=== PATIENT | female | born 1975 | race Asian ===

== ENCOUNTER → 2016-09-09 | Day surgery (SDC) | payer OTHER ==
[~2016-09-09] VITALS: Ht 152.4 cm; Wt 110.2 kg
[~2016-09-09] MED LIST: CLARINEX5 M1 PO; CLARITIN10 M3 PO; HYDROCHLOROTHIA25 M1 PO; LANTUS SOL100 UNIT/1; LOSARTAN POTAS100 M1 PO; METFORMIN HCL1000 M1 PO; NAPHCON A 0.02515 ML OTIC; NASONEX17 GM NAS; OPTIVAR OPH; PLAQUENIL200 M1 PO; RAYOS5 MG PO; SIMPONI; TESSALON PERLE100 M1 PO; TOBRAMYCIN AND10 ML OD; VENTOLIN HFA18 GM INH; VITAMIN D250000 UNIT PO
--- NOTE | 2016-09-09 10:22 | ULTRASOUND CBW REPORT ---
EXAMINATION: ULTRASOUND GUIDED NEEDLE LOCALIZATION BREAST, LEFT BREAST CLINICAL INFORMATION: Enlarging solid mass in the left breast 12:00. Localization for excision. COMPARISON: Several prior breast ultrasounds, most recent of which is dated 12/18/2015. TECHNIQUE NEEDLE LOC: Proper informed consent is obtained from the patient after discussion of the procedure, potential risks and complications, and alternatives including declining the procedure today. Patient was given an opportunity for questions. The patient appeared to understand. The patient consented to the procedure and signed the consent form. GUIDANCE: Ultrasound. APPROACH: Lateral. TARGET: 0.7 x 1.1 x 2.2 cm solid hypoechoic mass with mild internal vascular flow in the 12:00 position, 2 cm from the nipple ANESTHESIA: 10 mL Xylocaine 2%. LOCALIZATION MARKER: Maskless Lithography 5 cm needle localization system. The skin was prepped and local anesthesia administered. The needle was positioned and position assessed under continuous ultrasound guidance. The wire was hooked into position. The patient tolerated the procedure well and had no immediate complication. Diagram was marked for the surgeon. The target is a solid mass in the 12:00 position, located at the hook of the wire, 5.0 cm deep to the skin with 6.0 cm of the wire remaining external to the skin. IMPRESSION: Status post left breast needle localization with wire hooked into position. The target is a solid mass in the 12:00 position, located at the hook of the wire, 5.0 cm deep to the skin with 6.0 cm of the wire remaining external to the skin.
--- NOTE | 2016-09-09 18:44 | MAMMOGRAPHY REPORT ---
EXAMINATION: MM NEEDLE LOCALIZATION SPECIMEN FROM THE BREAST, LEFT CLINICAL INDICATION: Excision of solid left breast mass. COMPARISON: Preoperative needle localization films from 09/09/2016. TECHNIQUE: Single specimen radiograph was obtained. FINDINGS: The radiograph of the excised surgical specimen shows that the hookwire is delivered intact with the hook within the localized solid mass. On single projection, the mass measures approximately 1.7 x 1.9 cm. No orthogonal view is available to assess measurement of the third dimension. IMPRESSION: Satisfactory excision of the targeted lesion. These findings were communicated to the surgeon in the OR at the time of specimen radiography.
--- NOTE | 2016-09-11 13:12 | Operative Report ---
Operative/Inv Procedure Report Surgery Date: 09/09/16 Name of Procedure: Needle localization lumpectomy left breast Pre-Operative Diagnosis: Left breast mass Post-Operative Diagnosis: Same Estimated Blood Loss: scant Surgeon/Compressor Service Technician: PATRICIA SAM,EZEKIEL Ovalle Anesthesia: general endotracheal tube Operative/Procedure Note Note: I reviewed the needle localization films lesion was 5 cm deep at 12:00 Patient was placed on the OR table supine after successful induction of anesthesia and timeouts the left breast was prepped and draped in usual sterile fashion including trimming the wire, the wire entered laterally aimed an incision on the areolar edge from 3:00 to 11:00. This was infiltrated local anesthetic and the incision was made with a 15 blade and knowing the depth of the lesion we deepened the it's skin incision with cautery about 2 cm before developing a cylinder of tissue following the trajectory of the wire, the initial dissection proceeded subcutaneously towards the wire until we could see the wire we placed an Allis clamp around the area divided the wire removed the proximal portion and with the Allis gently brought out into the incision opening and continued to develop the cylinder of tissue at the lumpectomy straight down vertically towards the chest wall until we knew we were past the tip of the wire based on films and palpation. The firm round mass was at the end of the wire. After this was completely removed and oriented for the pathologist long lateral short superior silk sutures, we then placed in the prior vision to confirm, and then we sent to the pathologist, we then checked for hemostasis which was maintained all along with cautery and then we closed in layers using interrupted 3-0 Vicryl sutures subdermally and then a running subcuticular 4-0 Biosyn suture for the skin itself followed by Mastisol Steri-Strips Telfa and Tegaderm. EBL minimal lap and sponge counts correct wound expectancy clean IV fluids crystalloid complications none patient tolerated the procedure well was awakened and returned to recovery room in satisfactory condition.
== END ==
LOC: STS 08-26 07:00 → CBW.IIU 08-26 08:00 → CBW.MAMMO 08-26 08:30 → STS 01:46
DX: N60.82 Other benign mammary dysplasias of left breast (principal); I10 Essential (primary) hypertension; E11.9 Type 2 diabetes mellitus without complications; Z79.84 Long term (current) use of oral hypoglycemic drugs
CPT/HCPCS: 76942; 81025; 88307; J0131; J0690; J2250